=== PATIENT | female | born 1995 | race Caucasian/White ===

== ENCOUNTER 2018-03-28 01:44 | Emergency (ER) | payer OTHER ==
[~2018-03-28] VITALS: Ht 172.7 cm; Wt 72.6 kg
--- NOTE | 2018-03-28 02:02 | ED EENT ---
History of Present Illness General Chief Complaint: Oral/Throat Problems Stated Complaint: SORE THROAT,FEVER,THROAT CLOSING UP Source: patient Exam Limitations: no limitations History of Present Illness Date Seen by Provider: Mar 28, 2018 Time Seen by Provider: 01:48 Initial Comments Patient presents to ER by private conveyance with chief complaint she's been having 3 days now of sore throat and occasional dry nonproductive cough. No shortness of breath wheezing history of asthma or COPD. She does not smoke. Poor fluid intake secondary to the sore throat. She is using Tylenol Motrin with her last dose being about 4 hours ago. Subjective fevers and chills. Body aches. She's had her tonsils surgically removed. Allergies and Home Medications Allergies Coded Allergies: No Known Drug Allergies (Unverified , 03/28/18) Home Medications No Active Prescriptions or Reported Meds Patient Home Medication List Home Medication List Reviewed: Yes Review of Systems Review of Systems Constitutional: No chills, No diaphoresis Eyes: Denies Blindness, Denies Blurred Vision Ears: Denies Pain, Denies Tinnitus, Denies Bloody Discharge Nose: denies congestion, denies epistaxis, denies pain Mouth: denies clots, denies pain Throat: pain; denies neck stiffness; hoarse; denies aphonia, denies muffled; painful swallowing Respiratory: No cough, No short of breath Past Vosvkhu-Gucnqz-Xygwdg Hx Patient Social History Alcohol Use: Denies Use Recreational Drug Use: No Smoking Status: Never a Smoker Recent Foreign Travel: No Contact w/Someone Who Travel: No Physical Exam Vital Signs Vital Signs - First Documented 03/28/18 01:50 Temp 99.4 Pulse 120 Resp 18 B/P (MAP) 135/84 (101) Pulse Ox 97 O2 Delivery Room Air Height, Weight, BMI Height: '" Weight: lbs. oz. kg; BMI Method: General Appearance: WD/WN, no apparent distress Eyes: bilateral eye normal inspection, bilateral eye PERRL, bilateral eye EOMI Ears: bilateral ear auricle normal, bilateral ear canal normal, bilateral ear TM normal Nose: normal inspection; No active bleeding Mouth/Throat: normal mouth inspection; No tonsillar exudate; other (faint pharyngeal erythema) Neck: non-tender, full range of motion, supple, normal inspection Cardiovascular: normal peripheral pulses, regular rate, rhythm, no edema Respiratory: lungs clear, normal breath sounds, no respiratory distress, no accessory muscle use Neurologic/Psychiatric: alert, normal mood/affect, oriented x 3 Skin: normal color, warm/dry Progress/Results/Core Measures Results/Orders Lab Results Laboratory Tests Test 03/28/18 01:55 Range/Units Group A Streptococcus Screen POSITIVE H NEGATIVE My Orders Orders - NICKY DIAS Influenza A And B Antigens (03/28/18 01:55) Rapid Strep A Screen (03/28/18 01:55) Vital Signs/I&O 03/28/18 01:50 Temp 99.4 Pulse 120 Resp 18 B/P (MAP) 135/84 (101) Pulse Ox 97 O2 Delivery Room Air Progress Progress Note : Time: 01:59 Progress Note Mild tachycardia. Elevated temperature without fever. Influenza and rapid strep. Viral syndrome. We've counseled some conservative care. Departure Impression Primary Impression: Streptococcal sore throat Disposition: HOME, SELF-CARE Condition: Stable Departure-Patient Inst. Decision time for Depature: 02:15 Referrals: [facility] (PCP/Family) Primary Care Physician Patient Instructions: Strep Throat (DC) Add. Discharge Instructions: Drink plenty of fluids and continue to use Tylenol 1000 mg every 8 hours in addition to ibuprofen 800 mg every 8 hours. Use salt water gargles along with Chloraseptic sprays, cough drops etc. as needed for your sore throat. Over-the- counter medicines for symptoms. Vapor rubs such as Vicks and humidifiers. Get some sleep. Follow-up with [facility] if not seeing some improvement in 4-5 more days. All discharge instructions reviewed with patient and/or family. Voiced understanding. Scripts No Active Prescriptions or Reported Meds Work/School Note: Work Release Form Date Seen in the Emergency Department: Mar 28, 2018 Return to Work: Mar 29, 2018 Restrictions: No Restrictions Other Restrictions Listed Below: None NICKY DIAS Mar 28, 2018 02:02
[2018-03-28] MEDS ORDERED: PEN G PROC/BENZATH 1.2 M UNITS (BICILLIN C-R) SYR IM ONE (02:30)
[2018-03-28 02:39] VITALS: BP 133/68
== END 2018-03-28 02:39 | disposition home or self-care (01) ==
LOC: ER 01:48
DX: J02.0 Streptococcal pharyngitis (principal); J44.9 Chronic obstructive pulmonary disease, unspecified; Z90.89 Acquired absence of other organs
CPT/HCPCS: 87430; 87804